=== PATIENT | female | born 1940 | race Caucasian/White ===

== ENCOUNTER → 2018-11-28 | Outpatient (CLI) | payer OTHER | LOC: NUC 09:01 | DX: M48.54XA Collapsed vertebra, not elsewhere classified, thoracic region, initial encounter for fracture (principal); M41.85 Other forms of scoliosis, thoracolumbar region; M47.814 Spondylosis without myelopathy or radiculopathy, thoracic region; M24.151 Other articular cartilage disorders, right hip; M24.152 Other articular cartilage disorders, left hip; M81.0 Age-related osteoporosis without current pathological fracture; M85.88 Other specified disorders of bone density and structure, other site ==

== ENCOUNTER → 2019-02-27 | Outpatient (CLI) | payer OTHER | LOC: MRI 13:40 | DX: M41.86 Other forms of scoliosis, lumbar region (principal); M43.8X4 Other specified deforming dorsopathies, thoracic region; M51.36 Other intervertebral disc degeneration, lumbar region; M43.16 Spondylolisthesis, lumbar region; M51.25 Other intervertebral disc displacement, thoracolumbar region; M51.26 Other intervertebral disc displacement, lumbar region; M48.062 Spinal stenosis, lumbar region with neurogenic claudication; M47.816 Spondylosis without myelopathy or radiculopathy, lumbar region ==

== ENCOUNTER → 2019-11-30 | Outpatient (CLI) | payer OTHER | LOC: CAT 08:52 | PROVIDERS: ATTEND Preventive Medicine Public Health & General Preventive Medicine | DX: Z12.31 Encounter for screening mammogram for malignant neoplasm of breast (principal); Z11.1 Encounter for screening for respiratory tuberculosis; R10.11 Right upper quadrant pain; M41.86 Other forms of scoliosis, lumbar region; J98.4 Other disorders of lung; K76.0 Fatty (change of) liver, not elsewhere classified; G31.1 Senile degeneration of brain, not elsewhere classified; M47.816 Spondylosis without myelopathy or radiculopathy, lumbar region ==

== ENCOUNTER → 2020-08-27 | Outpatient (CLI) | payer OTHER ==
[2020-08-27 11:05] LABS: CREATININE 0.6 mg/dL (0.6-1.0)
== END ==
LOC: LAB 09:52 → CAT 09:52
PROVIDERS: ATTEND Preventive Medicine Public Health & General Preventive Medicine
DX: M43.16 Spondylolisthesis, lumbar region (principal); S22.088A Other fracture of T11-T12 vertebra, initial encounter for closed fracture; M47.816 Spondylosis without myelopathy or radiculopathy, lumbar region; K44.9 Diaphragmatic hernia without obstruction or gangrene; M25.78 Osteophyte, vertebrae; N20.0 Calculus of kidney; X58.XXXA Exposure to other specified factors, initial encounter; Y93.89 Activity, other specified; Y92.89 Other specified places as the place of occurrence of the external cause; Y99.8 Other external cause status